=== PATIENT | female | born 1995 | race American Indian/Alaskan Native ===

== ENCOUNTER → 2023-08-05 08:20 | Outpatient (BNVA) | payer SELFPAY | PROVIDERS: Visit Provider Family Medicine Adult Medicine | DX: R79.1 Abnormal coagulation profile (principal) | CPT/HCPCS: 84702 ==

== ENCOUNTER → 2024-03-26 11:05 | Outpatient (BNVA) | payer OTHER, SELFPAY | PROVIDERS: Visit Provider Nurse Practitioner Women's Health | DX: N92.6 Irregular menstruation, unspecified (principal) | CPT/HCPCS: 83001; 83002; 83036; 84144; 84146; 84403; 84443; 84702 ==

== ENCOUNTER → 2024-03-27 08:54 | Outpatient (BNVA) | payer OTHER, SELFPAY | PROVIDERS: Visit Provider Nurse Practitioner Women's Health | DX: N92.6 Irregular menstruation, unspecified (principal) | CPT/HCPCS: 84144 ==

== ENCOUNTER → 2024-04-18 10:18 | Outpatient (BNVA) | payer OTHER, SELFPAY | PROVIDERS: Visit Provider Nurse Practitioner Women's Health | DX: R10.2 Pelvic and perineal pain (principal); N83.202 Unspecified ovarian cyst, left side | CPT/HCPCS: 76830 ==

== ENCOUNTER → 2024-08-14 13:23 | Outpatient (BNVA) | payer OTHER, SELFPAY | PROVIDERS: PCP Family Medicine; Visit Provider Nurse Practitioner Women's Health | DX: Z32.01 Encounter for pregnancy test, result positive (principal); N91.2 Amenorrhea, unspecified | CPT/HCPCS: 81025; 84702; 86850; 86900 ==

== ENCOUNTER → 2024-08-29 11:05 | Outpatient (BNVA) | payer OTHER, SELFPAY | PROVIDERS: PCP Family Medicine; Visit Provider Registered Nurse Neonatal Intensive Care | DX: R50.9 Fever, unspecified (principal) | CPT/HCPCS: 87400; 87426 ==

== ENCOUNTER → 2024-08-30 10:50 | Outpatient (BNVA) | payer OTHER, SELFPAY | PROVIDERS: PCP Family Medicine; Visit Provider Obstetrics & Gynecology | DX: Z36.9 Encounter for antenatal screening, unspecified (principal) | CPT/HCPCS: 76801 ==

== ENCOUNTER → 2024-09-11 13:54 | Outpatient (BNVA) | payer OTHER, SELFPAY | PROVIDERS: PCP Family Medicine; Visit Provider Nurse Practitioner Women's Health | DX: Z34.90 Encounter for supervision of normal pregnancy, unspecified, unspecified trimester (principal); Z3A.10 10 weeks gestation of pregnancy | CPT/HCPCS: 80307; 84315; 84443; 85025; 86592; 86762; 86803; 86850; 86900; 87086; 87340; 87491; 87591; 87806 ==

== ENCOUNTER → 2024-09-12 00:09 | Outpatient (BNVA) | payer OTHER, SELFPAY | PROVIDERS: PCP Family Medicine; Visit Provider Nurse Practitioner Women's Health | DX: Z34.90 Encounter for supervision of normal pregnancy, unspecified, unspecified trimester (principal); Z3A.10 10 weeks gestation of pregnancy | CPT/HCPCS: 87522 ==

== ENCOUNTER → 2024-09-25 10:58 | Outpatient (BNVA) | payer OTHER, SELFPAY | PROVIDERS: PCP Family Medicine; Visit Provider Obstetrics & Gynecology | DX: Z34.90 Encounter for supervision of normal pregnancy, unspecified, unspecified trimester (principal) | CPT/HCPCS: 84315; 88175 ==

== ENCOUNTER → 2024-10-29 11:37 | Outpatient (BNVA) | payer OTHER, SELFPAY | PROVIDERS: PCP Family Medicine; Visit Provider Nurse Practitioner Women's Health | DX: Z3A.10 10 weeks gestation of pregnancy (principal) | CPT/HCPCS: 84315 ==

== ENCOUNTER → 2024-11-15 09:28 | Outpatient (BNVA) | payer OTHER, SELFPAY | PROVIDERS: PCP Family Medicine; Visit Provider Obstetrics & Gynecology | DX: O36.8120 Decreased fetal movements, second trimester, not applicable or unspecified (principal) | CPT/HCPCS: 76805 ==

== ENCOUNTER 2024-11-18 14:03 | Outpatient (CLI) | payer OTHER, SELFPAY ==
[2024-11-18 14:01] VITALS: BMI 18.3
--- NOTE | 2024-11-18 14:11 | USR_ITS ---
PROCEDURE INFORMATION: Exam: US , Limited Exam date and time: 11/18/2024 3:01 PM Age: 29 years old Clinical indication: Lmp or gestational age (in weeks): 20w3d; Antepartum complications; Decreased movements; Fetus 1; ; Additional info: Decreased movement, check placenta LABS AND CLINICAL REPORTS: Gestational age (Established): 20 w 3 d Estimated due date (Established): 04/04/2025 TECHNIQUE: Imaging protocol: Real-time ultrasound of the maternal uterus with image documentation. Exam focused on the clinical indication. COMPARISON: US OB >= 14 weeks fetus [id number] 11/15/2024 9:39 AM FINDINGS: Gestation: Single intrauterine gestation. Vertex position. heart rate: 161 bpm Placenta: Low-lying posterior location of the placenta. MATERNAL: Cervix: Cervical length measures 3.4 cm. US/US OB limited [id number] IMPRESSION: Single intrauterine with posterior low-lying placenta and documented heart rate.
[2024-11-18 14:22] VITALS: BP 112/65; PULSE 84
[2024-11-18 15:00] VITALS: BP 116/61; PULSE 80; RESP 16; O2SAT 98
[2024-11-18 15:13] VITALS: BP 116/61; PULSE 80
== END 2024-11-18 15:25 | disposition home or self-care (01) ==
LOC: OPOB 14:03 → OBGYN 14:04
PROVIDERS: PCP Family Medicine; Visit Provider Obstetrics & Gynecology
DX: O36.8190 Decreased fetal movements, unspecified trimester, not applicable or unspecified (principal); Z3A.00 Weeks of gestation of pregnancy not specified
CPT/HCPCS: 76815; 99211

== ENCOUNTER → 2024-11-21 09:49 | Outpatient (BNVA) | payer OTHER, SELFPAY | PROVIDERS: PCP Family Medicine; Visit Provider Obstetrics & Gynecology | DX: Z34.80 Encounter for supervision of other normal pregnancy, unspecified trimester (principal) | CPT/HCPCS: 84315 ==

== ENCOUNTER → 2024-12-18 13:40 | Outpatient (BNVA) | payer OTHER, SELFPAY | PROVIDERS: PCP Family Medicine; Visit Provider Nurse Practitioner Women's Health | DX: Z34.82 Encounter for supervision of other normal pregnancy, second trimester (principal) | CPT/HCPCS: 84315 ==

== ENCOUNTER 2025-01-01 13:45 | Outpatient (CLI) | payer OTHER, SELFPAY ==
[2025-01-01] VITALS (7 sets, daily range): BP systolic 104–117; BP diastolic 57–63; PULSE 81–93; BMI 19.0
== END 2025-01-01 15:53 | disposition home or self-care (01) ==
LOC: OPOB 13:47 → OBGYN 13:48
PROVIDERS: PCP Family Medicine; Visit Provider Obstetrics & Gynecology
DX: O26.899 Other specified pregnancy related conditions, unspecified trimester (principal); Z3A.00 Weeks of gestation of pregnancy not specified; R10.2 Pelvic and perineal pain
CPT/HCPCS: 99211

== ENCOUNTER → 2025-01-02 12:27 | Outpatient (BNVA) | payer OTHER, SELFPAY | PROVIDERS: PCP Family Medicine; Visit Provider Obstetrics & Gynecology | DX: Z36.9 Encounter for antenatal screening, unspecified (principal) | CPT/HCPCS: 76816 ==

== ENCOUNTER → 2025-01-17 10:45 | Outpatient (BNVA) | payer OTHER, SELFPAY | PROVIDERS: PCP Family Medicine; Visit Provider Obstetrics & Gynecology | DX: O44.40 Low lying placenta NOS or without hemorrhage, unspecified trimester (principal); R76.8 Other specified abnormal immunological findings in serum | CPT/HCPCS: 82950; 84315; 85025; 86803; 87522 ==

== ENCOUNTER → 2025-01-29 12:28 | Outpatient (BNVA) | payer OTHER, SELFPAY | PROVIDERS: PCP Family Medicine; Visit Provider Nurse Practitioner Women's Health | DX: Z36.9 Encounter for antenatal screening, unspecified (principal) | CPT/HCPCS: 76816 ==

== ENCOUNTER → 2025-01-31 13:46 | Outpatient (BNVA) | payer OTHER, SELFPAY | PROVIDERS: PCP Family Medicine; Visit Provider Nurse Practitioner Women's Health | DX: Z34.90 Encounter for supervision of normal pregnancy, unspecified, unspecified trimester (principal) | CPT/HCPCS: 84315; 87086 ==

== ENCOUNTER 2025-02-05 10:20 | Outpatient (CLI) | payer OTHER, SELFPAY ==
[2025-02-05 10:20] VITALS: BMI 19.5
[2025-02-05 10:44] VITALS: BP 116/73; PULSE 73
[2025-02-05 11:10] VITALS: BP 113/75; PULSE 78
[2025-02-05 11:12] LABS: Nitrazine Paper, PH Negative
[2025-02-05 11:25] VITALS: BP 112/67; PULSE 72
[2025-02-05 11:55] VITALS: BP 117/74; PULSE 67
[2025-02-05 13:11] VITALS: BP 118/68; PULSE 64
[2025-02-05 14:01] VITALS: BP 118/68; PULSE 64; RESP 16
== END 2025-02-05 13:25 | disposition home or self-care (01) ==
LOC: OPOB 10:21 → OBGYN 10:23
PROVIDERS: PCP Family Medicine; Visit Provider Obstetrics & Gynecology
DX: O26.899 Other specified pregnancy related conditions, unspecified trimester (principal); Z3A.00 Weeks of gestation of pregnancy not specified; N89.8 Other specified noninflammatory disorders of vagina
CPT/HCPCS: 83986

== ENCOUNTER → 2025-02-07 11:17 | Outpatient (BNVA) | payer OTHER, SELFPAY | PROVIDERS: PCP Family Medicine; Visit Provider Obstetrics & Gynecology | DX: Z34.80 Encounter for supervision of other normal pregnancy, unspecified trimester (principal) | CPT/HCPCS: 84315 ==

== ENCOUNTER 2025-02-10 17:35 | Outpatient (CLI) | payer OTHER, SELFPAY ==
[2025-02-10] VITALS (9 sets, daily range): BP systolic 110–127; BP diastolic 60–76; PULSE 68–75; RESP 16; TEMP 36.7; O2SAT 99; BMI 19.7
[2025-02-10 17:55] LABS: Bilirubin Urine Negative (Negative); Blood Urine Negative (Negative); Glucose Urine UA Negative (Normal); Ketones Urine Trace (Negative); Leukocyte Esterase Urine 2+ (Negative); Nitrate Urine Negative (Negative); Protein Urine Trace (Negative); Specific Gravity, Urine 1.027 (1.005-1.030); Urine Appearance Cloudy (CLEAR); Urine Color Yellow (Yellow); pH Urine 6.5 (5-7)
[2025-02-10 17:57] LABS: Bacteria Urine 3+ /hpf; Hyaline Casts Urine 2.87 /lpf; RBC Urine 0-2 /hpf (0-2); WBC Urine 21-50 /hpf (0-5)
[2025-02-10 17:59] LABS: Add Urine Culture? Yes
[2025-02-10] MEDS: lactated ringers 1,000 ML 999 ML IV (18:37)
== END 2025-02-10 20:25 | disposition home or self-care (01) ==
LOC: OPOB 17:36 → OBGYN 17:37
PROVIDERS: PCP Family Medicine; Visit Provider Obstetrics & Gynecology
DX: O26.899 Other specified pregnancy related conditions, unspecified trimester (principal); Z3A.00 Weeks of gestation of pregnancy not specified; R10.2 Pelvic and perineal pain
CPT/HCPCS: 59025; 81001; 87086; 99211; J0690; J7120

== ENCOUNTER 2025-02-19 12:05 | Outpatient (CLI) | payer OTHER, SELFPAY ==
[2025-02-19] VITALS (10 sets, daily range): BP systolic 107–160; BP diastolic 59–81; PULSE 63–82; RESP 16; BMI 19.8
[2025-02-19 12:28] LABS: Bilirubin Urine Negative (Negative); Blood Urine Negative (Negative); Glucose Urine UA Negative (Normal); Ketones Urine Negative (Negative); Leukocyte Esterase Urine 1+ (Negative); Nitrate Urine Negative (Negative); Protein Urine Negative (Negative); Urine Appearance Clear (CLEAR); Urine Color Yellow (Yellow)
[2025-02-19 12:33] LABS: Bacteria Urine None Seen /hpf; Hyaline Casts Urine 1.21 /lpf; RBC Urine 0-2 /hpf (0-2); Squamous Epithelial Cell Urine 0-5 /hpf (0-5)
[2025-02-19 12:48] LABS: Add Urine Culture? No
== END 2025-02-19 15:00 | disposition home or self-care (01) ==
LOC: OPOB 12:06 → OBGYN 12:08
PROVIDERS: PCP Family Medicine; Visit Provider Obstetrics & Gynecology
DX: O26.899 Other specified pregnancy related conditions, unspecified trimester (principal); Z3A.00 Weeks of gestation of pregnancy not specified; N39.0 Urinary tract infection, site not specified
CPT/HCPCS: 59025; 81001; 99211

== ENCOUNTER 2025-02-25 09:50 | Outpatient (CLI) | payer OTHER, SELFPAY ==
[2025-02-25 09:50] VITALS: BMI 19.9
[2025-02-25 10:05] VITALS: BP 117/81; PULSE 77
[2025-02-25 10:20] VITALS: BP 118/83; PULSE 72
[2025-02-25 10:29] LABS: Nitrazine Paper, PH Negative
[2025-02-25 10:34] VITALS: BP 115/82; PULSE 83
[2025-02-25 10:52] VITALS: BP 115/82; PULSE 83; RESP 17; O2SAT 98
== END 2025-02-25 10:52 | disposition home or self-care (01) ==
LOC: OPOB 09:54 → OBGYN 09:54
PROVIDERS: PCP Family Medicine; Visit Provider Obstetrics & Gynecology
DX: O26.899 Other specified pregnancy related conditions, unspecified trimester (principal); Z3A.00 Weeks of gestation of pregnancy not specified; N89.8 Other specified noninflammatory disorders of vagina
CPT/HCPCS: 59025; 76816; 83986; 84315; 99211

== ENCOUNTER 2025-03-04 09:02 | Outpatient (CLI) | payer OTHER, SELFPAY ==
[2025-03-04 09:05] VITALS: BMI 20.1
[2025-03-04 09:14] VITALS: BP 153/86; PULSE 76
[2025-03-04 09:34] VITALS: BP 122/81; PULSE 75
[2025-03-04 09:54] VITALS: BP 123/78; PULSE 68
[2025-03-04 10:14] VITALS: BP 125/75; PULSE 68
== END 2025-03-04 10:25 | disposition home or self-care (01) ==
LOC: OPOB 09:03 → OBGYN 09:05
PROVIDERS: PCP Family Medicine; Visit Provider Obstetrics & Gynecology
DX: O36.8190 Decreased fetal movements, unspecified trimester, not applicable or unspecified (principal); Z3A.00 Weeks of gestation of pregnancy not specified; R10.9 Unspecified abdominal pain
CPT/HCPCS: 59025; 99211

== ENCOUNTER → 2025-03-14 08:46 | Outpatient (BNVA) | payer OTHER, SELFPAY | PROVIDERS: PCP Family Medicine; Visit Provider Nurse Practitioner Women's Health | DX: Z34.90 Encounter for supervision of normal pregnancy, unspecified, unspecified trimester (principal) | CPT/HCPCS: 84315; 87081 ==

== ENCOUNTER → 2025-03-20 07:58 | Outpatient (BNVA) | payer OTHER, SELFPAY | PROVIDERS: PCP Family Medicine; Visit Provider Obstetrics & Gynecology | DX: O44.40 Low lying placenta NOS or without hemorrhage, unspecified trimester (principal) | CPT/HCPCS: 84315 ==

== ENCOUNTER 2025-03-25 00:12 | Inpatient (IN) | payer OTHER, SELFPAY ==
[2025-03-25] VITALS (95 sets, daily range): BP systolic 85–139; BP diastolic 49–89; PULSE 65–122; RESP 16–17; TEMP 36.1–37.1; O2SAT 91–100; BMI 20.8
[2025-03-25] MEDS: oxytocin 30 UNIT/500 ML BAG 600 UNIT IV (00:11)
--- NOTE | 2025-03-25 00:14 | P.HPUD_ITS ---
Labor & Delivery H&P Update Date of Procedure: March 25, 2025 Date H&P Performed: 03/20/25 Changes to previous documentation: The patient encounter occurred in the parking lot with the patient with a cervix that is complete, +2 station and pushing Admission Diagnosis: 29-year-old 3 para 1-0-1-1 at 38 weeks and 4 days arriving complete with vaginal delivery in the parking lot. Planned procedure: care Other information: The patient is a 29-year-old female who according to records received consistent care with Dr. Gonsalez. She began having contractions about an hour and a half prior to arriving at the hospital. By the time she arrived in the parking lot, her came in and said she was having the baby in the car. I was immediately available, and went out to the parking lot where I found the patient to be in a hands knees position in the passenger seat of the car. With the fan se present I quickly checked her and found the baby to be a +1 to +2 station with a complete cervix. I encouraged her to get into a wheelchair, but she stated that she could not and needed to push. She pushed to the next contraction and delivered the baby from vertex position. The cord was clamped and cut. The baby was cared for appropriately by the waiting nurse who immediately brought the baby into the hospital, and the patient was brought into the hospital for further care. The patient's appears to be remarkable for being hepatitis C antibody positive. She is hep C RNA negative. She does not appear to have an active infection at this time. Her drug screen was negative. She was negative for hepatitis B, RPR nonreactive, GC chlamydia negative, and HIV negative. She is rubella immune. GBS negative. Her 1 hour glucose screen was also negative. Related Problem List Diagnoses (1) 38 weeks gestation of : (2) Hepatitis C antibody positive in blood: (3) Vaginal delivery: A&P Assessment and plan (1) 38 weeks gestation of : We will continue routine care. Dr. Gonsalez will be contacted. Status: Acute (2) Hepatitis C antibody positive in blood: Status: Acute (3) Vaginal delivery: Status: Acute PDMP PDMP Reviewed: Not Reviewed
--- NOTE | 2025-03-25 00:24 | PM.DELIVERY ---
Delivery Note: Date of delivery: March 25, 2025 Pre-delivery diagnoses: 29-year-old 3 para 1-0-1-1 at 38 weeks and 4 days presenting to the parking lot in active labor, complete, and pushing Post-delivery diagnoses: Status post [id number] spontaneous vaginal delivery without complications Procedure: Spontaneous vaginal delivery Delivering Physician: Jean Faria Estimated blood loss (mL): 300 Pre-Delivery Course: The patient began having contractions about 1 and half hours prior to delivery. Her brought her to the hospital. By the time he arrived in the parking lot, she was screaming that she is can have her baby. He came into the hospital and notified myself and the nurses that his was going to have a baby in the parking lot. We immediately went out to the car and found her in a hands knees position in the passenger seat of the car actively pushing. Delivery: DELIVERY: She delivered a female with a weight of 5 pounds 3 ounces with Apgars of 9, 9. The baby was delivered from the SWATI position. The baby began crying immediately after delivery. The cord was then clamped and cut. There was no nuchal cord. The baby was then handed to the waiting nurse that immediately brought the baby inside to be further evaluated. There was no meconium. I then transferred the patient to a wheelchair where she was brought into the hospital for further evaluation. An IV was placed. The placenta and 3 vessel cord were delivered intact shortly thereafter. The perineum and vaginal vault were carefully examined. No lacerations were noted. Both the mother and the baby were in stable condition. Post-Delivery Status: Good History History History 3 Term 1 0 Miscarriages/Ectopic 1 Living Children 1 A&P Assessment and plan (1) Vaginal delivery: I anticipate routine care. (2) 38 weeks gestation of : PDMP PDMP Reviewed: Not Reviewed Coding Level of Care Code Acute Code for Chg Fwd Diagnoses Vaginal delivery O80 38 weeks gestation of Z3A.38
[2025-03-25 01:04] LABS: Basophils % 0.3 %; Eosinophils % 0.3 %; Hematocrit 37.5 % (36-47); Lymphocytes % 31.6 %; Mean Corpuscular HGB Conc 31.5 g/dL (30-55); Mean Corpuscular Hemoglobin 28.4 pg (27-33); Mean Corpuscular Volume 90.1 fl (85-98); Mean Platelet Volume 11.7 fL (7.4-10.4); Monocytes # 0.7 10^3/uL (0.2-0.9); Monocytes % 7.4 %; Neutrophils # 5.73 10^3/uL (1.8-7.7); Neutrophils % 60.3 %; Nucleated Red Blood Cells % 0 %; Platelet Count 182 10^3/cmm (157-399); Red Blood Count 4.16 10^6/uL (3.85-5.65); Red Cell Distribution Width 14.1 % (12.1-15.1)
[2025-03-25] MEDS: lactated ringers 1,000 ML 999 ML (01:15)
--- NOTE | 2025-03-25 01:25 | PC.NURSE ---
ROXANNE Gerber was at front end wheel loader operator, man approach and stated we are having a baby, I can't get her in here. ROXANNE Gerber announced loudly to unit baby in the parking lot Dr Faria was exiting the unit at that time to go home following his own patient's earlier delivery. ROXANNE Gerber and Dr Faria followed FOB out to parking lot with precip bucket. JUANI Kramer and JUANI Wayne advised JUANI Grubbs they were going to parkin lot for delivery and followed behind Dr Faria and ROXANNE Gerber. Patient found in a hands knees position in the passenger seat of the car actively pushing. Patient unable to move into the hospital at this time, delivery imminent. Dr Faria coached patient through delivery of . Cord was double clamped and cut per Dr Faria. Infant wrapped in blanket and handed to JUANI Kramer who took baby and FOB inside. Dr Faria and JUANI Wayne remained with mother and assisted her into wheelchair. Mother wheeled to LDRP room and assisted into the bed. JUANI Wayne placed 18G in Left hand and obtained labs. Placenta delivered by Dr Faria after IV placed. Dr Faria called Dr Gonsalez and reported delivery.
[2025-03-25] MEDS: acetaminophen 325 mg Tablet 650 MG PO ×2 (02:22→19:58)
--- NOTE | 2025-03-25 02:30 | PC.NURSE ---
Addendum entered by Nia Flynn RN 03/25/25 03:57: This RN attempted to get pt up to the bathroom after delivery. Pt sat up in bed and stated that she was light headed, dizzy and had ringing in her ears. Pt became unsteady and this RN assisted pt to lay back in the bed. Pt stated that she was feeling better after resting in bed. Original Note: This RN attempted to get pt up to the bathroom
--- NOTE | 2025-03-25 02:35 | PM.OBGYHP ---
Providers/Chief Complaint Admitting Physician: Elmer Gonsalez MD Primary BUILDING WRECKER: Elmer Gonsalez MD Primary Care Provider: Rafy Butler MD Chief Complaint: Delivery in hospital parking lot HPI BUILDING WRECKER History of Present Illness 29 y.o. A1 EDC April 04, 2025 At 38 w 4 d Drove to hospital with painful uterine contractions Delivered in car in hospital parking lot Vigorous infant Normal placenta and cord No lacerations Patient was seen by Dr. Faria, who coincidentally was in parking lot Patient then taken to L&D in good condition Present Details : 2 Para: 1 Labs Rubella: Immune RPR: Negative GBS: Negative Medications/Allergies Home Medications ?Medication ?Instructions ?Recorded ?Confirmed ?Last Taken ?Type docosahexaenoic acid 200 mg 200 mg PO DAILY 08/14/24 03/25/25 03/24/25 History capsule ( DHA) ondansetron 4 mg disintegrating 4 mg PO Q8H #30 tabs 08/14/24 03/25/25 Unknown Rx tablet Allergies Allergy/AdvReac Type Severity Reaction Status Date / Time No Known Allergies Allergy Verified 03/25/25 01:52 PFSH BUILDING WRECKER PFSH: Medical History (Updated 04/06/25 @ 01:06 by Elmer Gonsalez MD) Vaginal delivery 38 weeks gestation of Hepatitis C antibody positive in blood No significant active problems Surgical History H/O dilation and curettage August 2023 Family History Denies family history of Colon cancer Ovarian cancer Prostate cancer Diabetes Heart disease Breast cancer Hypertension Uterine cancer Thyroid disease Stroke Social History Smoking and tobacco/nicotine status: never used tobacco/nicotine Alcohol intake: current Alcohol intake frequency: few times a month Substance/Drug Use: never Marital status: Current occupation: Homemaker Personal Safety: Do you feel safe at home: Yes Victim of physical abuse: No Victim of emotional abuse: No Victim of sexual abuse: No Would you like help information on resources?: No History History History 3 Term 1 0 Miscarriages/Ectopic 1 Living Children 1 Care CATHERINE Calculator Estimated Delivery Date Method Current WG Current Estimate 04/04/25 Ultrasound #1 40w 2d Other Estimates 03/06/25 LMP (Uncertain) 44w 3d Specific Issues/Plans <del>NAUSEA</del> <del>AND</del> <del>VOMITING</del> <del>IN</del> <del></del> REACTIVE HEP C ANTIBODY: HCV RNA (PCR) no detected LOW LYING PLACENTA: most recent scan shows fundal/posterior placenta on 01/29/25 NICKI AYALA: starting at 34 weeks, dilated to 1/70/-3 02/24/25, no change in 3 weeks Vitals/I&O/Wt Last Vital Signs Temp 98.0 F 03/26/25 11:20 Pulse 75 03/26/25 15:12 Resp 16 03/26/25 11:20 BP 121/78 03/26/25 15:12 Pulse Ox 98 03/26/25 15:12 O2 Del Method Room Air 03/26/25 11:20 Physical Exam Narrative: Weight 127 lbs; 5?6? VS normal General awake, alert Lungs: clear Cor: RRR Abd: soft, nontender Perineum no bleeding Ext normal Data 03/25/25 21:15 Results Labs OB ([facility]): Obstetrics US 02/25/25 Blood Type O Positive 03/25/25 Antibody Screen Negative 03/25/25 Hct, (36-47) 29.5 % L Δ 03/25/25 Hgb, (11.27-16.99) 10.20 g/dL L Δ 03/25/25 Rho(D) Type Rh positive 03/25/25 Plt Count, (157-399) 104 10^3/cmm L Δ 03/25/25 Hep Bs Antigen, (Nonreactive) Non-reactive 09/11/24 Hepatitis C Antibody, (Nonreactive) Reactive H 01/17/25 Rubella IgG Antibody, (0.0-10.0) 201.0 IU/mL H 09/11/24 RPR, (Nonreactive) Nonreactive 09/11/24 HIV 1&2 Ab & HIV 1 Ag, (Non-Reactiv) Non-reactive 09/11/24 TSH, (0.27-4.20) 0.77 uIU/mL 09/11/24 C.trachomatis RNA (TMA), (NOT DETECTED) Not detected 09/11/24 N.gonorrhoeae RNA (TMA), (NOT DETECTED) Not detected 09/11/24 T. vaginalis Amp RNA, (NOT DETECTED) Not detected 09/11/24 Chlamydia/GC Comment See note 09/11/24 Glucose 1 Hr 50 gm, (85-140) 82 mg/dL L 01/17/25 Hemoglobin A1c, (4.0-6.0) 4.9 % 03/26/24 Progesterone 22.65 ng/mL 03/27/24 FSH 7.2 mIU/mL 03/26/24 Ser , Semi-Qnt 97868.00 mIU/mL 08/14/24 HCG, Qual, (Negative) Positive H 08/14/24 Urine Opiates Screen, (Negative) Negative ng/mL 09/11/24 Ur Barbiturates Screen, (Negative) Negative ng/mL 09/11/24 Ur Phencyclidine Scrn, (Negative) Negative ng/mL 09/11/24 Ur Amphetamines Screen, (Negative) Negative ng/mL 09/11/24 U Benzodiazepines Scrn, (Negative) Negative ng/mL 09/11/24 Urine Cocaine Screen, (Negative) Negative ng/mL 09/11/24 U Marijuana (THC) Screen, (Negative) Negative ng/mL 09/11/24 Micro Urine Specimen 02/10/25 Pap Smear Interpret See note 09/25/24 Prolactin, (4.8-23.3) 12.07 ng/mL 03/26/24 A&P Assessment and plan (1) Vaginal delivery: in parking lot Doing well Plan care PDMP PDMP Reviewed: Not Reviewed Attestations Medical Necessity Statement*: patient s/p vaginal delivery Coding Level of Care Code Acute Code for Chg Fwd Diagnoses Vaginal delivery O80
--- NOTE | 2025-03-25 03:05 | PM.DELIVERY ---
Delivery Note: Date of delivery: March 25, 2025 Pre-delivery diagnoses: 38 w 4 d active labor Post-delivery diagnoses: 38 w 4 d active labor vaginal delivery Procedure: vaginal delivery Op report anesthesia: None Delivering Physician: Jean Faria MD Estimated blood loss (mL): 300 Findings: 29 y.o. A1 EDC April 04, 2025 At 38 w 4 d Drove to hospital with painful uterine contractions Delivered in car in hospital parking lot Vigorous Normal placenta and cord No lacerations Patient was seen by Dr. Faria, who coincidentally was in parking lot Patient then taken to L&D in good condition Delivery: vaginal Post-Delivery Status: good History History History 3 Term 1 0 Miscarriages/Ectopic 1 Living Children 1 A&P Assessment and plan (1) Vaginal delivery: PDMP PDMP Reviewed: Not Reviewed Coding Level of Care Code Acute Code for Chg Fwd Diagnoses Vaginal delivery O80
--- NOTE | 2025-03-25 04:00 | PC.NURSE ---
Second attempt to assist patient to the bathroom. Sat patient on side of bed and advised her to take her time before getting up. As patient sat on side of bed, color began to drain from her face. Asked patient if she felt dizzy or light-headed. Patient reported she was light headed and then her body went limp. Supported patient, called her name and asked her to respond. Patient not verbally responding, sternal rub performed and patient opens her eyes but does not respond verbally. RAMANA assisted this RN in laying patient back in bed. Patient now fully awake and states I feel better. Advised patient we would give her more time before getting up to the bathroom. Patient denies urge to urinate at this time, uterine fundus is firm and midline with scant bleeding. [place] juice provided, BP cycling q 15 minutes and continuous pulse ox reapplied.
[2025-03-25 06:38] LABS: Hematocrit 22.3 % (36-47); Mean Corpuscular HGB Conc 32.7 g/dL (30-55); Mean Corpuscular Volume 88.5 fl (85-98); Mean Platelet Volume 10.9 fL (7.4-10.4); Platelet Count 156 10^3/cmm (157-399); Red Blood Count 2.52 10^6/uL (3.85-5.65); Red Cell Distribution Width 13.7 % (12.1-15.1); White Blood Count 18.47 10^3/uL (3.29-11.43)
[2025-03-25] MEDS: dextrose 5%-lactated ringers 1,000 ML 125 ML IV (07:19)
[2025-03-25] MEDS: ibuprofen 800 mg tablet PO (21:38)
[2025-03-25 21:47] LABS: Hematocrit 29.5 % (36-47); Mean Corpuscular HGB Conc 34.6 g/dL (30-55); Mean Corpuscular Hemoglobin 29.7 pg (27-33); Mean Corpuscular Volume 85.8 fl (85-98); Mean Platelet Volume 10.2 fL (7.4-10.4); Platelet Count 104 10^3/cmm (157-399); Red Blood Count 3.44 10^6/uL (3.85-5.65); Red Cell Distribution Width 14.7 % (12.1-15.1); White Blood Count 13.28 10^3/uL (3.29-11.43)
[2025-03-26 04:00] VITALS: BP 126/82; PULSE 72; RESP 16
[2025-03-26 11:20] VITALS: BP 121/80; PULSE 81; RESP 16; TEMP 36.6; TEMP 36.7; O2SAT 98
--- NOTE | 2025-03-26 11:50 | PM.OBGYDC ---
Discharge Providers FOOD SAFETY MANAGER Date of Admission: 03/25/25 00:12 Date of Discharge: 03/26/25 Attending Provider at Admission: Elmer Gonsalez MD Attending Provider at Discharge: Elmer Gonsalez MD Consults: none Primary FOOD SAFETY MANAGER: Elmer Gonsalez MD Primary Care Provider: Rafy Butler MD Diagnoses at Discharge Discharge Diagnosis (1) Vaginal delivery: Details from hospital stay: 29 y.o. A1 EDC April 04, 2025 At 38 w 4 d Drove to hospital with painful uterine contractions Delivered in car in hospital parking lot Vigorous infant Normal placenta and cord No lacerations Patient was seen by Dr. Faria, who coincidentally was in parking lot Patient then taken to L&D in good condition patient had an uncomplicated course and was discharged to home on the first day Status: Acute Reason for Visit Reason for Visit: Delivery in hospital parking lot Brief History: 29 y.o. A1 EDC April 04, 2025 At 38 w 4 d Drove to hospital with painful uterine contractions Delivered in car in hospital parking lot Hospital Course Hospital Course 29 y.o. A1 EDC April 04, 2025 At 38 w 4 d Drove to hospital with painful uterine contractions Delivered in car in hospital parking lot Vigorous infant Normal placenta and cord No lacerations Patient was seen by Dr. Faria, who coincidentally was in parking lot Patient then taken to L&D in good condition patient had an uncomplicated course and was discharged to home on the first day Information Peripartum Data: Infant Delivery Method: Vaginal Laceration description: None Episiotomy description: None complications: none Physical Exam Narrative: afebrile, VS normal comfortable, awake, alert Lungs: clear Cor: RRR Abd: soft, nontender. fundus firm Ext: no edema; nontender History History History 3 Term 1 0 Miscarriages/Ectopic 1 Living Children 1 Discharge Data Studies Completed and Pending Laboratory Results WBC 13.28 10^3/uL (3.29-11.43) H 03/25/25 21:15 RBC 3.44 10^6/uL (3.85-5.65) L 03/25/25 21:15 Hgb 10.20 g/dL (11.27-16.99) L D 03/25/25 21:15 Hct 29.5 % (36-47) L D 03/25/25 21:15 MCV 85.8 fl (85-98) 03/25/25 21:15 MCH 29.7 pg (27-33) 03/25/25 21:15 MCHC 34.6 g/dL (30-55) D 03/25/25 21:15 RDW 14.7 % (12.1-15.1) 03/25/25 21:15 Plt Count 104 10^3/cmm (157-399) L D 03/25/25 21:15 MPV 10.2 fL (7.4-10.4) 03/25/25 21:15 Neut % (Auto) 60.3 % 03/25/25 00:00 Lymph % (Auto) 31.6 % 03/25/25 00:00 Meagher % (Auto) 7.4 % 03/25/25 00:00 Eos % (Auto) 0.3 % 03/25/25 00:00 Baso % (Auto) 0.3 % 03/25/25 00:00 Neut # (Auto) 5.73 10^3/uL (1.8-7.7) 03/25/25 00:00 Lymph # (Auto) 3.0 10^3/uL (0.8-4.8) 03/25/25 00:00 Meagher # (Auto) 0.7 10^3/uL (0.2-0.9) 03/25/25 00:00 Eos # (Auto) 0.0 10^3/uL (0.0-0.8) 03/25/25 00:00 Baso # (Auto) 0.0 10^3/uL (0.0-0.1) 03/25/25 00:00 Nucleated RBC % (auto) 0 % 03/25/25 00:00 Nucleated RBCs # 0.0 /100WBC 03/25/25 00:00 Blood Type O Positive 03/25/25 00:00 Rho(D) Type Rh positive 03/25/25 00:00 Antibody Screen Negative 03/25/25 00:00 Crossmatch See Detail 03/25/25 00:00 Procedures Performed vaginal delivery Vitals Last Vital Signs Temp 98.0 F 03/26/25 11:20 Pulse 75 06/10/25 15:12 Resp 16 03/26/25 11:20 BP 121/78 03/26/25 15:12 Pulse Ox 98 03/26/25 15:12 O2 Del Method Room Air 03/26/25 11:20 Results Labs OB ([facility]): Obstetrics US 02/25/25 Blood Type O Positive 03/25/25 Antibody Screen Negative 03/25/25 Hct, (36-47) 29.5 % L Δ 03/25/25 Hgb, (11.27-16.99) 10.20 g/dL L Δ 03/25/25 Rho(D) Type Rh positive 03/25/25 Plt Count, (157-399) 104 10^3/cmm L Δ 03/25/25 Hep Bs Antigen, (Nonreactive) Non-reactive 09/11/24 Hepatitis C Antibody, (Nonreactive) Reactive H 01/17/25 Rubella IgG Antibody, (0.0-10.0) 201.0 IU/mL H 09/11/24 RPR, (Nonreactive) Nonreactive 09/11/24 HIV 1&2 Ab & HIV 1 Ag, (Non-Reactiv) Non-reactive 09/11/24 TSH, (0.27-4.20) 0.77 uIU/mL 09/11/24 C.trachomatis RNA (TMA), (NOT DETECTED) Not detected 09/11/24 N.gonorrhoeae RNA (TMA), (NOT DETECTED) Not detected 09/11/24 T. vaginalis Amp RNA, (NOT DETECTED) Not detected 09/11/24 Chlamydia/GC Comment See note 09/11/24 Glucose 1 Hr 50 gm, (85-140) 82 mg/dL L 01/17/25 Hemoglobin A1c, (4.0-6.0) 4.9 % 03/26/24 Progesterone 22.65 ng/mL 03/27/24 FSH 7.2 mIU/mL 03/26/24 Ser , Semi-Qnt 75055.00 mIU/mL 08/14/24 HCG, Qual, (Negative) Positive H 08/14/24 Urine Opiates Screen, (Negative) Negative ng/mL 09/11/24 Ur Barbiturates Screen, (Negative) Negative ng/mL 09/11/24 Ur Phencyclidine Scrn, (Negative) Negative ng/mL 09/11/24 Ur Amphetamines Screen, (Negative) Negative ng/mL 09/11/24 U Benzodiazepines Scrn, (Negative) Negative ng/mL 09/11/24 Urine Cocaine Screen, (Negative) Negative ng/mL 09/11/24 U Marijuana (THC) Screen, (Negative) Negative ng/mL 09/11/24 Micro Urine Specimen 02/10/25 Pap Smear Interpret See note 09/25/24 Prolactin, (4.8-23.3) 12.07 ng/mL 03/26/24 Discharge Plan Discharge Patient Disposition: Home Condition: Stable Prescriptions: Continued ondansetron 4 mg tablet,disintegrating 4 mg PO Q8H Qty: 30 0RF Rx Instructions: take as needed for nausea DHA 200 mg capsule 200 mg PO DAILY Discharge Orders: Discharge Order (Routine); Ordered 03/26/25 Ordered By: Elmer Gonsalez Referrals: Avelina Bowen, TURNER MACHINE [Nurse Practitioner, FOOD SAFETY MANAGER] - 05/06/25 10:45 am Discharge Diet: Usual diet Discharge Activity: Increase activity as tolerated Patient Instructions: Depression (DC), Opioid Safety (DC), Preeclampsia and Eclampsia After Delivery (GEN), Hemorrhage (DC), OB Discharge Report, OB Food/Drug Interaction Guide, Opioid Safety, OB Home Care, OB Vaginal Deliveries - [facility], Abnormal Bleeding Activity Restrictions/Additional Instructions: take iron 1-2 x / day Discharge Attestations FOOD SAFETY MANAGER Time Spent in Discharge Care*: less than 30 min Coding Level of Care Code Acute Code for Chg Fwd Diagnoses Vaginal delivery O80
[2025-03-26 15:12] VITALS: BP 121/78; PULSE 75; O2SAT 98
== END 2025-03-26 15:13 | disposition home or self-care (01) | DRG 807 ==
LOC: OBGYN 00:12
PROVIDERS: Admitting Provider Obstetrics & Gynecology; PCP Family Medicine; Visit Provider Obstetrics & Gynecology
DX: O98.42 Viral hepatitis complicating childbirth (principal); Z37.0 Single live birth; B19.20 Unspecified viral hepatitis C without hepatic coma; Z3A.38 38 weeks gestation of pregnancy
CPT/HCPCS: 36415; 36430; 59409; 85025; 85027; 86850; 86900; 86920; J2590; J7120; J7121; J9999; P9016